=== PATIENT | female | born 1955 | race Caucasian/White ===

== ENCOUNTER 2019-01-11 08:33 | Emergency (ER) | payer BC ==
[2019-01-11 09:03] VITALS: BP 154/84
--- NOTE | 2019-01-11 09:34 | ED ---
Upper Extremity Pain - HPI Summary HPI Summary: Right shoulder pain is new. No specific injury. It is lateral and right. It does not radiate from the neck. No numbness or weakness. It hurts more with use and reaching. Low back pain ahas been for about a year. it is hard to walk and stand. Tylenol and alleve help. No numbness of the legs. No weakness. No saddle anesthesia. No trauma. - History of Current Complaint Chief Complaint: UCBackPain Stated Complaint: BACK PAIN Time Seen by Provider: 01/11/19 09:08 Hx Obtained From: Patient Mechanism Of Injury: Unknown Onset/Duration: Started Days Ago Timing: Constant Severity Initially: Moderate Severity Currently: Moderate Pain Location: Other: - shoulder and back. 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 - Allergies/Home Medications Allergies/Adverse Reactions: Allergies Allergy/AdvReac Type Severity Reaction Status Date / Time No Known Allergies Allergy Verified 01/11/19 09:03 Home Medications: Home Medications Albuterol HFA INHALER* [Ventolin HFA Inhaler*] 2 puff INH Q6H PRN 01/11/19 [ History Confirmed 01/11/19] Budesonide/Formote 160/4.5(NF) [Symbicort 160/4.5 (NF)] 2 puff INH BID 01/11/19 [History Confirmed 01/11/19] Hydrochlorothiazide TAB* [Hydrodiuril TAB*] 25 mg PO DAILY 01/11/19 [History Confirmed 01/11/19] Ibuprofen TAB* [Advil TAB*] 400 mg PO Q6H PRN 01/11/19 [History Confirmed ] PMH/Surg Hx/FS Hx/Imm Hx Previously Healthy: No - low back pain. No PUD or kidney disease. Endocrine/Hematology History: Denies: Hx Diabetes, Hx Thyroid Disease Cardiovascular History: Reports: Hx Hypertension Respiratory History: Denies: Hx Asthma, Hx Chronic Obstructive Pulmonary Disease (COPD) GI History: Denies: Hx Ulcer Infectious Disease History: No Infectious Disease History: Denies: Hx Hepatitis, Hx Human Immunodeficiency Virus (HIV), Traveled Outside the [place] in Last 30 Days - Social History Alcohol Use: Occasionally Substance Use Type: Reports: None Smoking Status (MU): Heavy Every Day Tobacco Smoker Type: Cigarettes Amount Used/How Often: less than a pack per day Have You Smoked in the Last Year: Yes Review of Systems Positive: Arthralgia, Myalgia All Other Systems Reviewed And Are Negative: Yes Physical Exam Triage Information Reviewed: Yes Vital Signs On Initial Exam: Initial Vitals Temp Pulse Resp BP Pulse Ox 97.9 F 74 18 154/84 96 01/11/19 08:49 01/11/19 08:49 01/11/19 08:49 01/11/19 08:49 01/11/19 08:49 Vital Signs Reviewed: Yes Appearance: Positive: Pain Distress - Obvious stiffness. Skin: Positive: Warm Head/Face: Positive: Normal Head/Face Inspection Eyes: Positive: Normal, EOMI, ORION ENT: Positive: Pharynx normal, Nasal congestion. Negative: Pharyngeal erythema Neck: Positive: Supple, Nontender, No Lymphadenopathy Respiratory/Lung Sounds: Positive: Clear to Auscultation. Negative: Decreased Breath Sounds Cardiovascular: Positive: RRR Abdomen Description: Positive: Nontender, No Organomegaly, Soft Musculoskeletal: Positive: Other - toe raise, heel raise intact and 5/5 strength. No percussion tenderness or spasm. Right shoulder full rom. THere is intact strength with lateral abduction, internal and external rotation. Empty can neg. Ambrose neer positive for shoulder pain. Neurological: Positive: Normal, Sensory/Motor Intact, Alert, Oriented to Person Place, Time, CN Intact II-III Psychiatric: Positive: Normal Diagnostics - Vital Signs Vital Signs Temp Pulse Resp BP Pulse Ox 01/11/19 08:49 97.9 F 74 18 154/84 96 - Laboratory Lab Statement: Any lab studies that have been ordered have been reviewed, and results considered in the medical decision making process. Course/Dx - Course Assessment/Plan: Long discussion regarding importance of PT. - Diagnoses Provider Diagnoses: Impingement syndrome, shoulder, left, Low back pain Discharge - Sign-Out/Discharge Documenting (check all that apply): Patient Departure All imaging exams completed and their final reports reviewed: No Studies - Discharge Plan Condition: Fair Disposition: HOME Prescriptions: Cyclobenzaprine TAB* [Flexeril 10 MG TAB*] 10 mg PO BID PRN #40 tab PRN Reason: Pain Naproxen [Naproxen 500 mg tab] 500 mg PO BID PRN #50 tablet. PRN Reason: Pain Patient Education Materials: Chronic Back Pain (DC), Shoulder Pain (ED) Forms: *Work Release Referrals: Елена Vela PA [Primary Care Provider] - Jorge Christiansen MD [Medical Doctor] - Additional Instructions: [facility]. - Billing Disposition and Condition Condition: FAIR Disposition: Home
== END 2019-01-11 09:35 | disposition home or self-care (01) ==
LOC: UCCORT 08:33
DX: M25.511 Pain in right shoulder (principal); M54.5 Low back pain; M75.41 Impingement syndrome of right shoulder; I10 Essential (primary) hypertension; F17.210 Nicotine dependence, cigarettes, uncomplicated
CPT/HCPCS: 99212; G0463